=== PATIENT | male | born 1945 | race Caucasian/White ===

== ENCOUNTER → 2016-07-02 | Outpatient (CLI) | payer MEDICARE ==
[~2016-07-02] MED LIST: AMLODIPINE BESYL5 MG PO; ASPIRIN81 M1 PO; BP MED; HORMONE PILL; LISINOPRIL20 MG PO; METOPROLOL SUCC25 MG PO; NORVASC PO; PRINIVIL40 MG PO; VITAMIN C500 M1 PO; VITAMIN D1000 UNI1 PO
== END | disposition home or self-care (01) ==
LOC: CLAB 10:59
DX: C61 Malignant neoplasm of prostate (principal)
CPT/HCPCS: 84153